=== PATIENT | male | born 1935 | race Caucasian/White ===

== ENCOUNTER 2023-04-06 13:35 | Inpatient (IN) | payer OTHER, BC ==
[2023-04-06 14:42] LABS: HEMATOCRIT 42.8 % (35.4-49); HEMOGLOBIN 13.5 G/dL (11.7-16.9); MCH 28.3 pg (25.7-33.7); MCHC 31.6 g/dl (32.0-35.9); MEAN CELL VOLUME 89.4 fl (80-96); MEAN PLT VOLUME 9.1 fl (7.5-11.1); PLATELET COUNT 166.9 10^3/uL (134-434); RBC 4.79 10^6/uL (4.00-5.60); RDW 15.7 % (11.9-15.9); WHITE BLOOD COUNT 6.5 10^3/uL (4.0-10.8)
[2023-04-06 15:18] LABS: ALBUMIN 4.1 g/dl (3.4-5.0); BILIRUBIN,TOTAL 1.5 mg/dl (0.2-1); BLOOD UREA NITROGEN 22.9 mg/dl (7-18); CALCIUM 8.6 mg/dl (8.5-10.1); CREATININE 1.1 mg/dl (0.6-1.3); POTASSIUM 4.4 mmol/L (3.5-5.1); SGOT/AST 52.1 U/L (15-37); SGPT/ALT 117.2 U/L (7-52); TOT PROT 6.4 g/dl (6.4-8.2)
[2023-04-06 16:10] LABS: N-TERMINAL BNP 2149.1 pg/ml (5-450)
[2023-04-06] MEDS ORDERED: FUROSEMIDE 40 MG/4 ML INJECTABLE VIAL IVPUSH ONE (16:28)
[2023-04-06] MEDS ORDERED: FUROSEMIDE 40 MG/4 ML INJECTABLE VIAL ONE (16:34)
[2023-04-06] MEDS ORDERED: DOCUSATE SODIUM 100 MG CAPSULE (FP) PO PRN (20:08)
[2023-04-06] MEDS ORDERED: ACETAMINOPHEN 325 MG TABLET (FP) PO PRN (20:08)
[2023-04-06] MEDS ORDERED: MAGNESIUM SULF 50% (8.12 MEQ/2 ML-1 GM VIAL) IVPB ONE (21:39)
[2023-04-06] MEDS ORDERED: MAGNESIUM SULF 50% (8.12 MEQ/2 ML-1 GM VIAL) ONE (21:40)
[2023-04-06] MEDS ORDERED: SODIUM CHLORIDE 0.9% 500 ML INFUS.BAG IV ONE (21:49)
[2023-04-06] MEDS ORDERED: dilTIAZem HCL 50 MG/10 ML - 10 ML VIAL ONE (21:49)
[2023-04-06] MEDS ORDERED: dilTIAZem HCL 50 MG/10 ML - 10 ML VIAL IVPUSH ONE (21:55)
[2023-04-06] MEDS ORDERED: METOPROLOL TARTRATE 5 MG/5 ML VIAL IVPUSH ONE (22:34)
[2023-04-06] MEDS ORDERED: METOPROLOL TARTRATE 5 MG/5 ML VIAL ONE (22:39)
[2023-04-06 22:47] LABS: MAGNESIUM 1.9 mg/dL (1.8-2.4); PHOSPHOROUS 3.92 (2.5-4.9)
[2023-04-06] MEDS ORDERED: ASPIRIN 81 MG CHEWABLE TABLETS PO ONE ×2 (22:48→23:45)
[2023-04-06] MEDS ORDERED: DIGOXIN 0.25 MG TABLET PO ONE (23:34)
[2023-04-06] MEDS ORDERED: DIGOXIN 0.5 MG/2 ML AMPUL ONE (23:38)
[2023-04-06] MEDS ORDERED: DIGOXIN 0.5 MG/2 ML AMPUL IVPUSH ONE (23:50)
[2023-04-07 00:10] VITALS: BMI 25.7
[2023-04-07] MEDS ORDERED: DIGOXIN 0.5 MG/2 ML AMPUL IVPUSH ONE (05:30)
[2023-04-07 07:33] LABS: BASO % 1.1 % (0-2.0); EOS % 1.8 % (0-4.5); HEMOGLOBIN 13.3 GM/dL (11.7-16.9); LYMPH % 24.5 % (8-40); MCH 28.8 pg (25.7-33.7); MCHC 32.6 g/dl (32.0-35.9); MEAN CELL VOLUME 88.4 fl (80-96); MEAN PLT VOLUME 9.1 fl (7.5-11.1); MONO % 9.7 % (3.8-10.2); NEUT % 62.9 % (42.8-82.8); PLATELET COUNT 177 10^3/uL (134-434); RBC 4.64 M/mm3 (4.00-5.60); RDW 14.8 % (11.9-15.9); WHITE BLOOD COUNT 4.9 K/mm3 (4.0-10.0)
[2023-04-07 07:40] LABS: INR 1.22 (0.83-1.09); PROTHROMBIN TIME (PATIENT) 14.1 SEC (9.7-13.0)
[2023-04-07 07:43] LABS: ACTIVATED PTT 30.8 SECONDS (25.2-36.5)
[2023-04-07 07:51] LABS: POTASSIUM 4.3 mmol/L (3.5-5.1)
[2023-04-07 07:54] LABS: ALBUMIN 3.2 g/dl (3.4-5.0); BLOOD UREA NITROGEN 22.1 mg/dL (7-18); MAGNESIUM 2.5 mg/dL (1.8-2.4)
[2023-04-07 07:57] LABS: CREATININE 1.2 mg/dL (0.55-1.3)
[2023-04-07 07:59] LABS: BILIRUBIN,TOTAL 1.2 mg/dL (0.2-1); TOT PROT 6.1 g/dl (6.4-8.2)
[2023-04-07] MEDS ORDERED: ENOXAPARIN NA (PORCINE) 40 MG/0.4 ML DISP.SYRIN SQ SCH (10:00)
[2023-04-07] MEDS: metoPROLOL SUCCINATE 25 MG TAB.SR.24H (FP) PO SCH ×2 (11:37→21:11)
[2023-04-07] MEDS: FUROSEMIDE 40 MG/4 ML INJECTABLE VIAL IVPUSH SCH (11:37)
[2023-04-07 16:57] LABS: POTASSIUM 3.9 mmol/L (3.5-5.1)
[2023-04-07 16:58] LABS: CALCIUM 8.2 mg/dL (8.5-10.1)
[2023-04-07 16:59] LABS: BLOOD UREA NITROGEN 24.6 mg/dL (7-18)
[2023-04-07 17:02] LABS: CREATININE 1.3 mg/dL (0.55-1.3)
[2023-04-07] MEDS: APIXABAN 5 MG TABLET PO SCH (21:11)
[2023-04-08] MEDS: FUROSEMIDE 40 MG/4 ML INJECTABLE VIAL IVPUSH SCH (10:35)
[2023-04-08] MEDS: APIXABAN 5 MG TABLET PO SCH ×2 (10:35→21:17)
[2023-04-08] MEDS: metoPROLOL SUCCINATE 25 MG TAB.SR.24H (FP) PO SCH (10:35)
[2023-04-08] MEDS ORDERED: metoPROLOL SUCCINATE 25 MG TAB.SR.24H (FP) PO ONE (11:40)
[2023-04-08 17:19] LABS: POTASSIUM 4.2 mmol/L (3.5-5.1)
[2023-04-08 17:22] LABS: BLOOD UREA NITROGEN 27.4 mg/dL (7-18); CALCIUM 8.5 mg/dL (8.5-10.1)
[2023-04-08 17:25] LABS: CREATININE 1.5 mg/dL (0.55-1.3)
[2023-04-09] MEDS: FUROSEMIDE 40 MG TABLET (FP) PO SCH (10:50)
[2023-04-09] MEDS: APIXABAN 5 MG TABLET PO SCH ×2 (10:50→21:59)
[2023-04-09 11:56] LABS: HEMATOCRIT 42.1 % (35.4-49); HEMOGLOBIN 13.6 GM/dL (11.7-16.9); MCH 28.7 pg (25.7-33.7); MCHC 32.3 g/dl (32.0-35.9); MEAN CELL VOLUME 88.8 fl (80-96); PLATELET COUNT 200 10^3/uL (134-434); RBC 4.74 M/mm3 (4.00-5.60); RDW 14.7 % (11.9-15.9); WHITE BLOOD COUNT 6.9 K/mm3 (4.0-10.0)
[2023-04-09 12:30] LABS: POTASSIUM 4.2 mmol/L (3.5-5.1)
[2023-04-09 12:31] LABS: CALCIUM 8.1 mg/dL (8.5-10.1)
[2023-04-09 12:32] LABS: ALBUMIN 3.2 g/dl (3.4-5.0); BLOOD UREA NITROGEN 26.4 mg/dL (7-18); MAGNESIUM 2.4 mg/dL (1.8-2.4)
[2023-04-09 12:36] LABS: CREATININE 1.3 mg/dL (0.55-1.3); PHOSPHOROUS 3.6 mg/dL (2.5-4.9); TOT PROT 6.2 g/dl (6.4-8.2)
[2023-04-09] MEDS ORDERED: SODIUM CHLORIDE 1,000 ML IV SCH (16:15)
[2023-04-09] MEDS ORDERED: TAFLUPROST OU SCH (22:00)
[2023-04-09] MEDS ORDERED: [UNRECOGNIZED DRUG - OTHER] OU SCH (22:00)
[2023-04-10 08:48] LABS: HEMATOCRIT 39.1 % (35.4-49); HEMOGLOBIN 12.6 GM/dL (11.7-16.9); MCH 28.6 pg (25.7-33.7); MCHC 32.3 g/dl (32.0-35.9); MEAN CELL VOLUME 88.5 fl (80-96); MEAN PLT VOLUME 9.3 fl (7.5-11.1); PLATELET COUNT 184 10^3/uL (134-434); RBC 4.42 M/mm3 (4.00-5.60); RDW 14.1 % (11.9-15.9)
[2023-04-10] MEDS: FUROSEMIDE 40 MG TABLET (FP) PO SCH (09:09)
[2023-04-10] MEDS: APIXABAN 5 MG TABLET PO SCH ×2 (09:09→21:26)
[2023-04-10 09:15] LABS: CALCIUM 8.4 mg/dL (8.5-10.1)
[2023-04-10 09:16] LABS: ALBUMIN 3.1 g/dl (3.4-5.0); BLOOD UREA NITROGEN 30.9 mg/dL (7-18); MAGNESIUM 2.1 mg/dL (1.8-2.4)
[2023-04-10 09:19] LABS: CREATININE 1.2 mg/dL (0.55-1.3); PHOSPHOROUS 3.9 mg/dL (2.5-4.9)
[2023-04-10 09:20] LABS: BILIRUBIN,TOTAL 1.1 mg/dL (0.2-1)
[2023-04-10 09:21] LABS: TOT PROT 5.8 g/dl (6.4-8.2)
[2023-04-11] MEDS: FUROSEMIDE 40 MG TABLET (FP) PO SCH (09:51)
[2023-04-11] MEDS: APIXABAN 5 MG TABLET PO SCH (09:51)
[2023-04-11 15:52] VITALS: TEMP 97.9
[2023-04-11 19:58] VITALS: BP 144/113; PULSE 74; RESP 16
== END 2023-04-11 17:50 | disposition home or self-care (01) | DRG 291 ==
LOC: FER 13:35 → FM/S 16:56 → J4W 04-07 03:43
PROVIDERS: ADMIT Internal Medicine; ATTEND Internal Medicine
DX: I11.0 Hypertensive heart disease with heart failure (principal); I50.31 Acute diastolic (congestive) heart failure; I24.8 Other forms of acute ischemic heart disease; N17.9 Acute kidney failure, unspecified; I48.91 Unspecified atrial fibrillation; H40.9 Unspecified glaucoma; H35.30 Unspecified macular degeneration; I08.3 Combined rheumatic disorders of mitral, aortic and tricuspid valves; R94.31 Abnormal electrocardiogram [ECG] [EKG]; Z85.46 Personal history of malignant neoplasm of prostate
CPT/HCPCS: 0241U-QW; 36415; 70450-TC; 71045-TC-FY; 80048; 80053; 82962; 83735; 83880; 84100; 84484; 85025; 85027; 85610; 85730; 93005; 93010; 93306-TC; 94761; 97116-GP; 97161-GP; 99285-25